=== PATIENT | male | born 2000 | race African-American/Black ===

== ENCOUNTER 2018-12-11 14:39 | Emergency (ER) | payer OTHER ==
[~2018-12-11] VITALS: Ht 167.6 cm; Wt 81.6 kg
[2018-12-11 15:11] LABS: PLATELET COUNT 293 K/uL (142-355)
[2018-12-11 15:25] LABS: POTASSIUM 3.5 mmol/L (3.6-5.2)
[2018-12-11 17:44] VITALS: BP 142/69; TEMP 98
== END 2018-12-11 17:44 | disposition home or self-care (01) ==
LOC: ED 14:39
PROVIDERS: Emergency Medicine
DX: R10.84 Generalized abdominal pain (principal)
CPT/HCPCS: 36415; 80053; 81000; 82150; 83690; 85027; 99283; Q9963